=== PATIENT | female | born 1935 | race Caucasian/White ===

== ENCOUNTER → 2016-11-10 | Outpatient (CLI) | payer OTHER ==
[~2016-11-10] MED LIST: AMLO10TA2 PO; CEPH-376 PO; FLUO20CA8 PO; HYDR-3138 PO; LEVO75TA5 PO; LISI-167 PO; OMEP-110 PO; OXYC5TAB3 PO; SIMV40TA3 PO
== END | disposition home or self-care (01) ==
LOC: CFH 14:29
PROVIDERS: ATTEND Family Medicine
DX: M25.551 Pain in right hip (principal)

== ENCOUNTER → 2017-04-07 | Outpatient (CLI) | payer OTHER ==
[~2017-04-07] MED LIST changes: -HYDR-3138 PO; +HYDR-3237 PO; +REGADENOSON 0.4 MG/5 ML SYRINGE ONE
== END | disposition home or self-care (01) ==
LOC: CFH 09:29
PROVIDERS: ATTEND Internal Medicine Cardiovascular Disease
DX: I08.0 Rheumatic disorders of both mitral and aortic valves (principal); I10 Essential (primary) hypertension
CPT/HCPCS: 93306; J2785

== ENCOUNTER → 2017-05-20 | Outpatient (CLI) | payer OTHER ==
[~2017-05-20] MED LIST changes: -REGADENOSON 0.4 MG/5 ML SYRINGE ONE
== END | disposition home or self-care (01) ==
LOC: RAD 15:17
PROVIDERS: ATTEND Family Medicine
DX: I67.89 Other cerebrovascular disease (principal); R90.82 White matter disease, unspecified
CPT/HCPCS: 70450

== ENCOUNTER 2021-03-12 12:38 | Emergency (ER) | payer MEDICARE, OTHER ==
[~2021-03-12] VITALS: Ht 165.1 cm; Wt 68.2 kg
[~2021-03-12 12:38] MED LIST changes: +AMLO-211 PO; -AMLO10TA2 PO; +FLUO20CA23 PO; -FLUO20CA8 PO; -OXYC5TAB3 PO; +OXYC5TAB98 PO; +SIMV40TA20 PO; -SIMV40TA3 PO
--- NOTE | 2021-03-12 15:02 | NUR ---
[id number].
--- NOTE | 2021-03-12 16:07 | NUR ---
Patient to room from lobby
[2021-03-12 16:24] VITALS: BP 152/55
--- NOTE | 2021-03-12 16:26 | NUR ---
PT BIB DAUGHTER VIA POV. PER PT SHE HAD "A DIZZY SPELL" AND "FELT MY HEART RACING" AT APPROX 1100. HER DAUGHTER DROVE HER IN TO ED AND IT GOT BETTER, PT SAYS SHE NOW JUST FEELS "SILLY" FOR COMING IN. EDMD AT BEDSIDE FOR EVAL. PT RESTING IN [facility], MONITORING IN PLACE, NUSRAT AT THIS TIME, DAUGHTER AT BEDSIDE, WCTM.
[2021-03-12 16:46] LABS: BASOPHILS % (AUTO) 1 % (0-1); EOSINOPHILS % (AUTO) 4 % (1-7); LYMPHOCYTES % (AUTO) 25 % (22-44); MEAN CORPUSCULAR HEMOGLOBIN 27.1 pg (27.0-34.8); MEAN CORPUSCULAR HGB CONC 32.8 g/dL (32.4-35.8); MEAN PLATELET VOLUME 7.9 fL (7.4-10.4); MONOCYTES % (AUTO) 9 % (2-9); NEUTROPHILS % (AUTO) 61 % (42-75); PLATELET COUNT 221 x10^3/uL (130-400); RED BLOOD COUNT 4.75 x10^6/uL (3.82-5.3); RED CELL DISTRIBUTION WIDTH 15.5 % (9.6-15.2)
[2021-03-12 16:59] LABS: ALBUMIN 3.8 g/dL (3.4-5.0); ANION GAP 5 mmol/L (5-15); CALCIUM 8.8 mg/dL (8.5-10.1); CHLORIDE 106 mmol/L (98-107); CREATININE 0.99 mg/dL (0.55-1.02)
[2021-03-12 17:08] LABS: TROPONIN I < 0.015 ng/mL (0.000-0.045)
[2021-03-12] MEDS ORDERED: MAGNESIUM OXIDE 400 MG TABLET ONE ×2 (17:47→17:54)
[2021-03-12] MEDS ORDERED: MAGNESIUM OXIDE 400 MG TABLET PO ONE (18:00)
--- NOTE | 2021-03-12 18:00 | NUR ---
TASK RN: ENTERED ROOM TO D/C PT. PT HAD REMOVED ALL MONITORS AND WAS FULLY DRESSED. MED PT NOTED, PT REFUSED TO WAIT ANY LONGER AND DID NOT WANT HER BP TAKEN AGIAN. Patient/Caregiver given discharge instructions and they have confirmed that they understand the instructions. Patient ambulatory with steady gait. NAD, all questions answered appropriately, denies additional needs at this time. No personal belongings left in room after discharge.
== END 2021-03-12 18:08 | disposition home or self-care (01) ==
LOC: ED 12:43
DX: R00.2 Palpitations (principal); E83.42 Hypomagnesemia; I10 Essential (primary) hypertension; Z87.891 Personal history of nicotine dependence
CPT/HCPCS: 36415; 71045; 80048; 82040; 83735; 84443; 84484; 85025; 93005; 99285

== ENCOUNTER 2021-03-16 09:02 | Emergency (ER) | payer MEDICARE ==
[~2021-03-16] VITALS: Ht 165.1 cm; Wt 68.4 kg
[2021-03-16] MEDS ORDERED: HYDROcodone/APAP 5/325 TABLET PO PRN (09:30)
--- NOTE | 2021-03-16 09:40 | NUR ---
PT REPORTS CHEST PAIN, SOB, AND RIGHT HAND PAIN WITH DIFFICULTY MOVING EXTREMITY BEGINNING LAST NIGHT. NO CARDIAC HX ECG IN TRIAGE PLACED ON [employer] RIGHT HAND SWOLLEN-NO REPORTED TRAUMA RADIOLODY AT BEDSIDE
[2021-03-16] MEDS ORDERED: PLEASE ENTER ALLERGIES MC SCH (10:00)
[2021-03-16] MEDS ORDERED: HYDROcodone/APAP 5/325 TABLET ONE (10:06)
[2021-03-16 10:08] LABS: BASOPHILS % (AUTO) 1 % (0-1); EOSINOPHILS % (AUTO) 6 % (1-7); LYMPHOCYTES % (AUTO) 14 % (22-44); MEAN CORPUSCULAR HEMOGLOBIN 27.3 pg (27.0-34.8); MEAN PLATELET VOLUME 8.5 fL (7.4-10.4); MONOCYTES % (AUTO) 8 % (2-9); NEUTROPHILS % (AUTO) 71 % (42-75); PLATELET COUNT 199 x10^3/uL (130-400); RED BLOOD COUNT 4.66 x10^6/uL (3.82-5.3); RED CELL DISTRIBUTION WIDTH 15.3 % (9.6-15.2)
[2021-03-16 10:13] LABS: ALANINE AMINOTRANSFERASE 18 U/L (12-78); ALBUMIN 3.4 g/dL (3.4-5.0); ANION GAP 6 mmol/L (5-15); CALCIUM 8.6 mg/dL (8.5-10.1); CHLORIDE 108 mmol/L (98-107); CREATININE 0.96 mg/dL (0.55-1.02)
[2021-03-16 10:18] LABS: ALKALINE PHOSPHATASE 78 U/L (45-117); BILIRUBIN,TOTAL 0.7 mg/dL (0.2-1.0); HCT (SEDRATE) 38.6 % (34.6-47.8); TOTAL PROTEIN 6.7 g/dL (6.4-8.2); TROPONIN I < 0.015 ng/mL (0.000-0.045)
[2021-03-16 10:48] VITALS: BP 121/52
--- NOTE | 2021-03-16 10:49 | NUR ---
with reassessment pain to right wrist remains at 5/10
--- NOTE | 2021-03-16 11:43 | NUR ---
RADIOLOGY CALLED TO EXPEDITE XRAY READS
== END 2021-03-16 12:30 | disposition home or self-care (01) ==
LOC: ED 11:58 → MERGE 11:58 → ED 12:30
DX: M19.031 Primary osteoarthritis, right wrist (principal); M19.041 Primary osteoarthritis, right hand; R07.89 Other chest pain; I10 Essential (primary) hypertension
CPT/HCPCS: 36415; 71045; 80053; 84484; 84550; 85025; 85651; 93005; 99285